=== PATIENT | male | born 1935 | race African-American/Black ===

== ENCOUNTER → 2017-06-28 | Outpatient (CLI) | payer MEDICARE, BC ==
--- NOTE | 2017-06-28 12:25 | RADIOLOGY REPORT (SQ) ---
EXAM DESCRIPTION: CHEST PA/LATERAL COMPLETED DATE/TIME: 06/28/2017 10:55 am REASON FOR STUDY: UNSPECIFIED ASTHMA, UNCOMPLICATED COMPARISON: 06/23/2012 EXAM PARAMETERS: NUMBER OF VIEWS: two views TECHNIQUE: Digital Frontal and Lateral radiographic views of the chest acquired. RADIATION DOSE: NA LIMITATIONS: none FINDINGS: LUNGS AND PLEURA: No opacities, masses or pneumothorax. No pleural effusion. MEDIASTINUM AND HILAR STRUCTURES: Prominence of the inferior right hilum. HEART AND VASCULAR STRUCTURES: Heart normal size. No evidence for failure. BONES: Scoliosis. HARDWARE: None in the chest. OTHER: No other significant finding. IMPRESSION: There is stable prominence of the inferior right hilum. No acute pulmonary disease is p resent. TECHNICAL DOCUMENTATION: JOB ID: [id number] [employer]- All Rights Reserved
== END ==
LOC: OD 10:40
PROVIDERS: ATTEND Internal Medicine
DX: J45.909 Unspecified asthma, uncomplicated (principal)
CPT/HCPCS: 71020

== ENCOUNTER → 2017-10-06 | Outpatient (CLI) | payer MEDICARE, BC ==
[2017-10-07 10:04] LABS: PROSTATE SPECIFIC ANTIGEN 5.6 ng/mL (0.0-4.0); PSA % FREE 7.5 (.); PSA FREE 0.42 ng/mL
== END ==
LOC: OD 10:35
PROVIDERS: ATTEND Urology
DX: N40.1 Benign prostatic hyperplasia with lower urinary tract symptoms (principal); R97.20 Elevated prostate specific antigen [PSA]
CPT/HCPCS: 36415; 84154

== ENCOUNTER → 2017-10-18 | Outpatient (CLI) | payer BC, MEDICARE ==
--- NOTE | 2017-10-18 15:04 | RADIOLOGY REPORT (SQ) ---
EXAM DESCRIPTION: CT LUNG CANCER SCREENING COMPLETED DATE/TIME: 10/18/2017 1:47 pm REASON FOR STUDY: Z87.891 PERSONAL HISTORY OF NICOTINE DEPENDENCE Z87.891 PERSONAL HISTORY OF NICOT INE DEPENDENCE Has the patient had a Chest CT scan within the past year? Was the patient offered tobacco cessation counseling? Was the patient engaged in shared decision making for this test? Does the patient have signs or symptoms of Lung Cancer? Is the patient a smoker? How many packs per year? How many years since quitting smoking? Patients age: COMPARISON: None. TECHNIQUE: Low Dose CT scan performed of the chest without intravenous contrast for purposes of scre ening for lung cancer. Images reviewed with lung, soft tissue and bone windows. Reconstructed coron al and sagittal MPR images reviewed. All images stored on PACS. All CT scanners at this facility use dose modulation, iterative reconstruction, and/or weight based d osing when appropriate to reduce radiation dose to as low as reasonably achievable (ALARA). [facility]: Dose Right [facility]: CareDose [facility]: Dose Right [facility]: Teradose 4D [facility]: SmartFocus RADIATION DOSE: CT Rad equipment meets quality standard of care and radiation dose reduction techniq ues were employed. CTDIvol: 2.1 mGy. DLP: 77 mGy-cm. mGy. . LIMITATIONS: No technical limitations. FINDINGS: LUNGS AND PLEURA: No masses or nodules. No pleural effusions or calcifications. No pne umothorax. Centrilobular emphysema. HILAR AND MEDIASTINAL STRUCTURES: No identified masses. No abnormal nodes. HEART AND VASCULAR STRUCTURES: No aortic aneurysm. No pericardial effusion. No cardiac devices. CORONARY ARTERY CALCIFICATIONS: Mild to moderate calcifications. UPPER ABDOMEN: No significant findings. THYROID AND OTHER SOFT TISSUES: No masses. No adenopathy. BONY STRUCTURES: No significant finding. OTHER: No other significant findings. IMPRESSION: NO SIGNIFICANT FINDING ON NON-CONTRASTED CHEST CT. OTHER FINDINGS ABOVE. LUNGRADS: LUNGRADS: 1 NEGATIVE. NO NODULES, OR DEFINITELY BENIGN NODULES MODIFIER: NONE RECOMMENDATION: Continue annual screening with LDCT in 12 months. COMMENT: CRITERIA: No lung nodules. Nodules with specific calcifications: Complete, central, popcorn, concentric rings and fat containin g nodules. TECHNICAL DOCUMENTATION: JOB ID: [id number] Quality ID # [id number]: Final reports with documentation of one or more dose reduction techniques (e.g., Au tomated exposure control, adjustment of the mA and/or kV according to patient size, use of iterative reconstruction technique) 2010 [facility] Reading location - IP/workstation name: [email or web address]
== END ==
LOC: RAD 13:47
PROVIDERS: ATTEND Physician Assistant
DX: Z12.2 Encounter for screening for malignant neoplasm of respiratory organs (principal); R06.00 Dyspnea, unspecified; Z87.891 Personal history of nicotine dependence
CPT/HCPCS: G0297

== ENCOUNTER 2018-01-10 09:50 | Day surgery (SDC) | payer BC, MEDICARE ==
[~2018-01-10 09:50] MED LIST: BESIFLOXACIN HCL 0.6% OPH SUSP 5 ML BOTTLE OD PRN; CYCLOPENTOLATE 0.2%/PHENYLEPHRINE 1% OPH SOLN 2 ML OD PRN; KETOROLAC TROMETHAMINE 0.45% 4 DROP/0.4 ML DROPERETTE OD PRN; TETRACAINE HCL 0.5% OPH SOLN 2 ML OD PRN; TROPICAMIDE 1% OPH SOLN 3 ML OD PRN
[2018-01-10] MEDS ORDERED: EPINEPHRINE INJ/PF 1 MG/1 ML AMPULE ONE (10:04)
[2018-01-10] MEDS ORDERED: CHONDR SU A NA/HYALUR INTRAOC KIT (SURGICARE) ONE (10:04)
[2018-01-10] MEDS ORDERED: LIDOCAINE 1% INJ-PF (10 MG/ML) 30 ML SDV ONE (10:04)
[2018-01-10] MEDS: BESIFLOXACIN HCL 0.6% OPH SUSP 5 ML BOTTLE OD PRN ×3 (10:59→11:56)
[2018-01-10] MEDS: CYCLOPENTOLATE 0.2%/PHENYLEPHRINE 1% OPH SOLN 2 ML OD PRN ×3 (10:59→11:19)
[2018-01-10] MEDS: TROPICAMIDE 1% OPH SOLN 3 ML OD PRN ×3 (10:59→11:19)
[2018-01-10] MEDS: TETRACAINE HCL 0.5% OPH SOLN 2 ML OD PRN ×3 (11:00→11:35)
[2018-01-10] MEDS ORDERED: MIDAZOLAM 2 MG/2 ML INJ ONE (11:13)
[2018-01-10] MEDS ORDERED: FENTANYL CITRATE INJ/PF 100 MCG/2 ML AMPUL ONE (11:14)
[2018-01-10] MEDS ORDERED: LIDOCAINE 1%/PHENYLEPHRINE 1.5% 1 ML VIAL ONE (11:45)
--- NOTE | 2018-01-10 14:45 | [facility] OPERATIVE REPORT E ---
[facility] Operative Report NAME: KRISTAN REID AGE: 82Y DATE OF SURGERY: 01/10/2018 ROOM: PREOPERATIVE DIAGNOSES: 1. CATARACT, RIGHT EYE. 2. PUPIL MIOSIS, RIGHT EYE. POSTOPERATIVE DIAGNOSES: 1. CATARACT, RIGHT EYE. 2. PUPIL MIOSIS, RIGHT EYE. OPERATION: Complex cataract extraction with use of a Malyugin ring due to poor pupillary dilation. SURGEON: RAJANI FU M.D. ANESTHESIA: Topical. COMPLICATIONS: None. ESTIMATED BLOOD LOSS: None. PROCEDURE: After obtaining appropriate consent, the patient right eye was prepped and draped in sterile fashion as well as the surgeon in a sterile manner, and the cataract surgery was started. First, the paracentesis blade was used to make a small side-port incision. Viscoelastic was used to inflate the anterior chamber. Next a 2.4 mm incision was made using a 2.4 mm keratome. At this point, the pupil was less than 4.5 mm and was very miotic. In order to complete the capsulorhexis, a Malyugin ring was inserted and found to be in excellent position to help stabilize the pupil. Following this, a continuous capsulorhexis was made using a cystitome and Utrata forceps. Following this, hydrodissection was carried out to make the lens fully loose and mobile, and it was rotated 90 degrees. Following this, a divide and conquer technique was used to phacoemulsify the lens with a CDE of approximately 12.75. The remaining cortex was removed with irrigation/aspiration. Provisc was instilled into the capsular bag to inflate the bag. A SN60WF lens of 21.5 diopters was placed. The remaining viscoelastic material was removed with irrigation/aspiration. After this the Malyugin ring was removed. Following this, the incision was found to be watertight. Besivance was instilled into the eye and a protective shield was placed over the eye. The patient returned to the postoperative recovery in stable condition. This was a complex case due to the fact that the Malyugin ring was used due to poor pupillary dilation of less than or equal to 4 mm. Prior to making the capsulorrhexis a Malyugin ring was inserted due to poor pupillary dilation of 3 mm. This was removed at the end of the case. DICTATING PHYSICIAN: RAJANI FU M.D. [id number] PHY#: [id number] ID: [id number] JOB#: [id number] ACCT: [id number] cc:RAJANI FU M.D. >
--- NOTE | 2018-01-10 14:48 | [facility] DISCHARGE SUMMARY E ---
[facility] Discharge Summary NAME: KRISTAN REID AGE: 82Y ADMITTED: 01/10/2018 DISCHARGED: 01/10/2018 DIAGNOSES: 1. Cataract, right eye. 2. Pupil miosis, right eye. SUMMARY: This is an 82-year-old male who underwent complex cataract extraction with use of a Malyugin ring due to poor pupillary dilation. Patient underwent surgery because he was having difficulty driving at night secondary to glare from headlights. DISCHARGE INSTRUCTIONS: Patient should be on a regular diet, no bending at his waist, and no heavy lifting. He should use his Besivance, Ilevro, and Durezol at 3 p.m. and 8 p.m. and sleep with a rigid shield. I will see him for a 1-day postoperative tomorrow. DICTATING PHYSICIAN: RAJANI FU M.D. [id number] PHY#: [id number] ID: [id number] JOB#: [id number] ACCT: [id number] cc:RAJANI FU M.D. >
== END 2018-01-10 12:40 | disposition home or self-care (01) ==
LOC: SC 09:50
PROVIDERS: ATTEND Internal Medicine
DX: H25.811 Combined forms of age-related cataract, right eye (principal); H57.03 Miosis; J44.9 Chronic obstructive pulmonary disease, unspecified; I10 Essential (primary) hypertension; K21.9 Gastro-esophageal reflux disease without esophagitis; E11.9 Type 2 diabetes mellitus without complications; Z79.51 Long term (current) use of inhaled steroids; Z79.899 Other long term (current) drug therapy; Z79.82 Long term (current) use of aspirin
CPT/HCPCS: 66982; 82962; V2632; J2250; J3490; A9270; J0171; J3010; J2370; 142

== ENCOUNTER 2018-02-23 09:26 | Day surgery (SDC) | payer MEDICARE ==
[~2018-02-23 09:26] MED LIST changes: -BESIFLOXACIN HCL 0.6% OPH SUSP 5 ML BOTTLE OD PRN; +CHONDR SU A NA/HYALUR INTRAOC KIT (SURGICARE) ONE; -CYCLOPENTOLATE 0.2%/PHENYLEPHRINE 1% OPH SOLN 2 ML OD PRN; +EPINEPHRINE INJ/PF 1 MG/1 ML AMPULE ONE; -KETOROLAC TROMETHAMINE 0.45% 4 DROP/0.4 ML DROPERETTE OD PRN; +KETOROLAC TROMETHAMINE 0.45% 4 DROP/0.4 ML DROPERETTE OS PRN; +LIDOCAINE 1% INJ-PF (10 MG/ML) 30 ML SDV ONE; +LIDOCAINE 1%/PHENYLEPHRINE 1.5% 1 ML VIAL ONE; -TETRACAINE HCL 0.5% OPH SOLN 2 ML OD PRN; -TROPICAMIDE 1% OPH SOLN 3 ML OD PRN
[2018-02-23] MEDS: BESIFLOXACIN HCL 0.6% OPH SUSP 5 ML BOTTLE OS PRN ×4 (09:58→10:53)
[2018-02-23] MEDS: CYCLOPENTOLATE 0.2%/PHENYLEPHRINE 1% OPH SOLN 2 ML OS PRN ×3 (09:58→10:18)
[2018-02-23] MEDS: TROPICAMIDE 1% OPH SOLN 3 ML OS PRN ×3 (09:58→10:18)
[2018-02-23] MEDS: TETRACAINE HCL 0.5% OPH SOLN 2 ML OS PRN ×3 (09:59→10:33)
[2018-02-23] MEDS ORDERED: MIDAZOLAM 2 MG/2 ML INJ ONE (10:15)
[2018-02-23] MEDS ORDERED: FENTANYL CITRATE INJ/PF 100 MCG/2 ML AMPUL ONE (10:16)
--- NOTE | 2018-02-24 13:26 | [facility] DISCHARGE SUMMARY E ---
[facility] Discharge Summary NAME: KRISTAN REID AGE: 82Y ADMITTED: 02/23/2018 DISCHARGED: 02/23/2018 HISTORY: This is an 82-year-old patient who underwent complex cataract extraction in the left eye with insertion of a Malyugin ring. DIAGNOSES: 1. Cataract, left eye. 2. Pupil myosis requiring a Malyugin ring. HOSPITAL COURSE: The patient underwent surgery because she was having trouble seeing small print. DISCHARGE INSTRUCTIONS: He should be on a regular diet. No bending at his waist, no heavy lifting. He should his Besivance, Ilevro, and Durezol at 3 p.m. and 8 p.m. and sleep with a rigid shield, and I will see him for a 1 day postoperative tomorrow. DICTATING PHYSICIAN: RAJANI FU M.D. [id number] PHY#: [id number] ID: [id number] JOB#: [id number] ACCT: [id number] cc:RAJANI FU M.D. >
--- NOTE | 2018-02-24 13:26 | [facility] OPERATIVE REPORT E ---
[facility] Operative Report NAME: KRISTAN REID AGE: 82Y DATE OF SURGERY: 03/01/2018 ROOM: PREOPERATIVE DIAGNOSES: 1. Cataract, left eye. 2. Pupil myosis, left eye. POSTOPERATIVE DIAGNOSES: 1. Cataract, left eye. 2. Pupil myosis, left eye. PROCEDURE: Complex cataract extraction with the use of a Malyugin ring due to pupillary miosis. SURGEON: RAJANI FU M.D. ANESTHESIA: TOPICAL. COMPLICATIONS: None. ESTIMATED BLOOD LOSS: None. DESCRIPTION OF PROCEDURE: After obtaining appropriate consent, the patient left eye was prepped and draped in sterile fashion as well as the surgeon in a sterile manner, and the cataract surgery was started. First, the paracentesis blade was used to make a small side-port incision. Viscoelastic was used to inflate the anterior chamber. Next a 2.4 mm incision was made using a 2.4 mm keratome. At this point, the pupil was less than 4.5 mm and was very miotic. In order to complete the capsulorhexis, a Malyugin ring was inserted and found to be in excellent position to help stabilize the pupil. Following this, a continuous capsulorhexis was made using a cystitome and Utrata forceps. Following this, hydrodissection was carried out to make the lens fully loose and mobile, and it was rotated 90 degrees. Following this, a divide and conquer technique was used to phacoemulsify the lens with a CDE of approximately 7.93. The remaining cortex was removed with irrigation/aspiration. Provisc was instilled into the capsular bag to inflate the bag. A SN60WF lens of 22.0 diopters was placed. The remaining viscoelastic material was removed with irrigation/aspiration. After this the Malyugin ring was removed. Following this, the incision was found to be watertight. Besivance was instilled into the eye and a protective shield was placed over the eye. The patient returned to the postoperative recovery in stable condition. Prior to making the capsulorrhexis, a Malyugin ring was inserted due to a very myotic pupil less than 4 mm. This was removed at the end of the case. DICTATING PHYSICIAN: RAJANI FU M.D. [id number] PHY#: [id number] ID: [id number] JOB#: [id number] ACCT: [id number] cc:RAJANI FU M.D. >
== END 2018-02-23 11:55 | disposition home or self-care (01) ==
LOC: SC 09:26
PROVIDERS: ATTEND Internal Medicine
DX: H25.812 Combined forms of age-related cataract, left eye (principal); H57.03 Miosis; Z96.1 Presence of intraocular lens; J44.9 Chronic obstructive pulmonary disease, unspecified; E11.9 Type 2 diabetes mellitus without complications; K21.9 Gastro-esophageal reflux disease without esophagitis; I10 Essential (primary) hypertension; Z79.51 Long term (current) use of inhaled steroids; I25.2 Old myocardial infarction; Z79.82 Long term (current) use of aspirin
CPT/HCPCS: 66982; 82962; V2632; J2250; J3490; A9270; J0171; J2370; 142; J3010

== ENCOUNTER → 2018-10-24 | Outpatient (CLI) | payer MEDICARE ==
--- NOTE | 2018-10-24 13:36 | RADIOLOGY REPORT (SQ) ---
EXAM DESCRIPTION: CT CHEST WITHOUT COMPLETED DATE/TIME: 10/24/2018 1:08 pm REASON FOR STUDY: J43.2 CENTRILOBULAR EMPHYSEMA J43.2 CENTRILOBULAR EMPHYSEMA COMPARISON: Screening 10/18/2017 TECHNIQUE: CT scan performed of the chest without intravenous contrast. Images reviewed with lung, soft tissue and bone windows. Reconstructed coronal and sagittal MPR images reviewed. All images st ored on PACS. All CT scanners at this facility use dose modulation, iterative reconstruction, and/or weight based d osing when appropriate to reduce radiation dose to as low as reasonably achievable (ALARA). [facility]: Dose Right [facility]: CareDose [facility]: Dose Right [facility]: Teradose 4D [facility]: Smart [employer] RADIATION DOSE: CT Rad equipment meets quality standard of care and radiation dose reduction techniq ues were employed. CTDIvol: 13.3 mGy. DLP: 459 mGy-cm. mGy. LIMITATIONS: No technical limitations. FINDINGS: LUNGS AND PLEURA: No masses, infiltrates, or pneumothorax. No pleural effusions or pleura l calcifications. HILAR AND MEDIASTINAL STRUCTURES: No identified masses or abnormal nodes. No obvious aneurysm. HEART AND VASCULAR STRUCTURES: Small pericardial effusion. No aneurysm. UPPER ABDOMEN: Diverticulosis coli. THYROID AND OTHER SOFT TISSUES: No masses. No adenopathy. BONES: No significant finding. HARDWARE: None in the chest. OTHER: No other significant findings. IMPRESSION: Small pericardial effusion. Diverticulosis coli. No acute finding in the lungs. TECHNICAL DOCUMENTATION: JOB ID: [id number] Quality ID # [id number]: Final reports with documentation of one or more dose reduction techniques (e.g., Au tomated exposure control, adjustment of the mA and/or kV according to patient size, use of iterative reconstruction technique) 2010 [employer]- All Rights Reserved Reading location - IP/workstation name: [email or web address]
== END ==
LOC: RAD 16:21
PROVIDERS: ATTEND Internal Medicine Pulmonary Disease
DX: J43.2 Centrilobular emphysema (principal); I31.3 Pericardial effusion (noninflammatory); K57.30 Diverticulosis of large intestine without perforation or abscess without bleeding
CPT/HCPCS: 71250

== ENCOUNTER → 2019-06-22 | Outpatient (CLI) | payer MEDICARE ==
--- NOTE | 2019-06-22 09:32 | RADIOLOGY REPORT (SQ) ---
EXAM DESCRIPTION: CERV SP 4 OR 5 VIEWS COMPLETED DATE/TIME: 06/22/2019 9:13 am REASON FOR STUDY: CERVICALGIA M54.2 CERVICALGIA COMPARISON: 10/18/2000 NUMBER OF VIEWS: Five views including obliques. TECHNIQUE: AP, lateral, obliques and odontoid radiographic images acquired of the cervical spine. LIMITATIONS: None. FINDINGS: MINERALIZATION: Osteopenia. ALIGNMENT: There is reversal of the normal cervical doses. VERTEBRAE: There is wedging of C6 and C7 unchanged from prior study. DISCS: Multilevel disc space narrowing with osteophytes. POSTERIOR ELEMENTS: Pedicles and facets are intact. No posterior arch defects. Facet arthropathy is present. FORAMINA: Narrowed at the levels of maximal disc and facet disease. HARDWARE: None in the spine. PARASPINAL SOFT TISSUES: Normal. OTHER: No other significant finding. IMPRESSION: Osteopenia. Severe disc degenerative disease. Wedging of C6 and C7 unchanged from prio r study. TECHNICAL DOCUMENTATION: JOB ID: [id number] [employer]- All Rights Reserved Reading location - IP/workstation name: [email or web address]
== END ==
LOC: RAD 08:47
PROVIDERS: ATTEND Internal Medicine
DX: M54.2 Cervicalgia (principal)
CPT/HCPCS: 72050

== ENCOUNTER 2019-11-02 20:37 | Emergency (ER) | payer MEDICARE ==
[2019-11-02 20:57] LABS: ABSOLUTE LYMPHOCYTES (AUTO) 0.9 10^3/uL (0.5-4.7); ABSOLUTE MONOCYTES (AUTO) 0.4 10^3/uL (0.1-1.4); ABSOLUTE NEUT (AUTO) 4.8 10^3/uL (1.7-8.2); BASOPHILS % (AUTO) 0.2 % (0-2); EOSINOPHILS % (AUTO) 0.6 % (0-6); HEMOGLOBIN 11.2 g/dL (13.5-17.0); LYMPHOCYTES % (AUTO) 14.5 % (13-45); MEAN CORPUSCULAR HEMOGLOBIN 28.7 pg (27.0-33.4); MEAN CORPUSCULAR HGB CONC 33.9 g/dL (32.0-36.0); MEAN CORPUSCULAR VOLUME 85 fl (80-97); MONOCYTES % (AUTO) 7.2 % (3-13); PLATELET COUNT 114 10^3/uL (150-450); RED CELL DISTRIBUTION WIDTH 14.8 % (11.5-14.0); SEGMENTED NEUTROPHILS % (AUTO) 77.5 % (42-78); TOTAL CELLS COUNTED % (AUTO) 100 %; WHITE BLOOD COUNT 6.2 10^3/uL (4.0-10.5)
[2019-11-02 21:15] LABS: ALBUMIN 3.1 g/dL (3.5-5.0); ALKALINE PHOSPHATASE 49 U/L (38-126); ASPARTATE AMINO TRANSFERASE 27 U/L (17-59); BILIRUBIN,DIRECT 0.1 mg/dL (0.0-0.4); BILIRUBIN,TOTAL 0.5 mg/dL (0.2-1.3); BLOOD UREA NITROGEN 16 mg/dL (7-20); CALCIUM 8.9 mg/dL (8.4-10.2); CARBON DIOXIDE 29 mmol/L (22-30); CREATINE KINASE 169 U/L (55-170); GLUCOSE 162 mg/dL (75-110); POTASSIUM 4.1 mmol/L (3.6-5.0); TOTAL PROTEIN 5.5 g/dL (6.3-8.2)
[2019-11-02 21:20] LABS: ANION GAP 5 (5-19); CHLORIDE 104 mmol/L (98-107)
[2019-11-02 21:27] LABS: CREATINE KINASE MB 1.77 ng/mL (<4.55); TROPONIN I < 0.012 ng/mL
[2019-11-02] MEDS ORDERED: NORMAL SALINE 1000 ML 1,000 ML IV ONE (22:11)
[2019-11-02] MEDS ORDERED: NORMAL SALINE 250 ML IV PRN ×2 (22:12)
--- NOTE | 2019-11-02 22:17 | ER Document Report ---
ED GI Bleed / Rectal Pain - General Chief Complaint: Rectal Bleeding Stated Complaint: RECTAL BLEEDING Time Seen by Provider: 11/02/19 21:35 Primary Care Provider: ANGIE EDUARDO MD [Primary Care Provider] - Follow up as needed Mode of Arrival: Medic Information source: Patient Notes: 84-year-old man presents to the emergency department with a history of rectal bleeding. States that he was seen by his physician earlier in the week and told that it was likely hemorrhoidal. He presents tonight with tachycardia and bright red blood per rectum. He has had a very large bloody stool in the emergency department with a secondary repeat episode. Patient became hyp otensive and lightheaded/presyncopal while in the ER. TRAVEL OUTSIDE OF THE [place] IN LAST 30 DAYS: No - Related Data Allergies/Adverse Reactions: No Known Allergies Allergy (Verified 02/23/18 10:03) Past Medical History - Social History Smoking Status: Former Smoker Chew tobacco use (# tins/day): No Frequency of alcohol use: None Drug Abuse: None Family History: Reviewed & Not Pertinent Patient has suicidal ideation: No Patient has homicidal ideation: No - Past Medical History Cardiac Medical History: Reports: Hx Heart Attack - SLIGHT-90'S, Hx Hypercholesterolemia, Hx Hypertension - MEDS Pulmonary Medical History: Reports: Hx Asthma - NO MEDS THOUGH Neurological Medical History: Denies: Hx Cerebrovascular Accident, Hx Seizures GI Medical History: Denies: Hx Hepatitis, Hx Hiatal Hernia, Hx Ulcer Infectious Medical History: Denies: Hx Hepatitis Past Surgical History: Reports: Hx Orthopedic Surgery - right foot. Denies: Hx Open Heart Surgery, Hx Pacemaker - Immunizations Hx Diphtheria, Pertussis, Tetanus Vaccination: No Review of Systems - Review of Systems Notes: Constitutional: Negative for fever. HENT: Negative for sore throat. Eyes: Negative for visual changes. Cardiovascular: + Tachycardia, chest pain. Respiratory: Negative for shortness of breath. Gastrointestinal: + Bright red blood per rectum, negative for abdominal pain, vomiting or diarrhea. Genitourinary: Negative for dysuria. Musculoskeletal: Negative for back pain. Skin: Negative for rash. Neurological: Negative for headaches, weakness or numbness. 10 point ROS negative except as marked above and in HPI. Physical Exam - Vital signs Vitals: Temp Resp BP Pulse Ox 98.6 F 29 H 125/94 H 98 11/02/19 20:39 11/02/19 20:39 11/02/19 20:39 11/02/19 20:39 - Notes Notes: PHYSICAL EXAMINATION: Physical Exam: General: Well-nourished well-developed in no acute distress HEENT: NC/AT, pupils equal round and reactive to light, MM moist,nares clear, oropharynx clear, airway patent Neck: supple, no adenopathy, no masses. Good range of motion Lungs: clear, no wheezing, no rales no rhonchi CVS: Regular rate and rhythm no murmur gallop or rub Abdomen: Soft, active, nontender, no masses, no hepatosplenomegaly Ext: No edema, clubbing or cyanosis. Neuro: Alert and responsive, moving all 4 extremities on command, cranial nerves intact, no focal findings Skin: Intact no open lesions, no rash PSYCH: Normal mood, normal affect. Course - Re-evaluation Re-evalutation: 11/02/19 22:38 Patient became hypotensive and presyncopal, emergent blood 1 unit is being infu sed, the patient is typed and crossmatched for 2 units of typed specific blood, normal saline 1 L is also ordered. A repeat CBC is being done. I have discussed with the patient the need for transfer given there is no gastroenterology coverage at [facility] until Tuesday11/06/2019. 11/02/19 23:02 The hospitalist at [facility], Dr. Barreto has accepted the patient in transfer. We will continue fluid and blood resuscitation to stabilize blood pressure. Patient remains asymptomatic alert and responsive with normal oxygen saturation on room air. 11/03/19 00:17 Patient's blood pressure has improved to 103/74 he is continued to be hemodynamically alert and responsive post transfusion 1 unit of blood and an additional liter of normal saline. The repeat hemoglobin hematocrit 9.5/27. Patient will receive additional units of packed RBCs, type-specific red blood cells. 11/03/19 00:18 The patient's is at the bedside and I have explained to her that he is being transferred to [facility], she is in agreement with that plan. - Vital Signs Vital signs: Temp Pulse Resp BP Pulse Ox 98.6 F 123 H 19 103/74 99 11/03/19 00:10 11/03/19 00:10 11/03/19 00:10 11/03/19 00:10 11/03/19 00:10 - Laboratory Result Diagrams: 11/02/19 22:49 11/02/19 20:44 Laboratory results interpreted by me: 11/02/19 11/02/19 11/02/19 20:44 20:44 20:44 RBC 3.90 L Hgb 11.2 L Hct 33.0 L RDW 14.8 H Plt Count 114 L Glucose 162 H Total Protein 5.5 L Albumin 3.1 L Crossmatch See Detail 11/02/19 22:49 RBC 3.26 L Hgb 9.5 L Hct 27.7 L RDW 15.0 H Plt Count 105 L Glucose Total Protein Albumin Crossmatch 11/03/19 00:14 I have reviewed laboratory data and used this information for the treatment decisions regarding the patient. - EKG Interpretation by Me Rate: Tachycardia - Sinus tachycardia with no acute ST-T wave abnormalities noted., Rate 124 Critical Care Note - Critical Care Note Total time excluding time spent on procedures (mins): 60 - Critical care time spent obtaining history from patient or surrogate, discussions with consultants, development of treatment plan with patient or surrogate, evaluation of patient's response to treatment, examination of patient, ordering and performing treatments and interventions, ordering and review of laboratory studies, re- evaluation of patient's condition, ordering and review of radiographic studies and review of old charts Discharge - Discharge Clinical Impression: Hemorrhagic shock, Lower GI bleed Condition: Serious Disposition: [facility] Referrals: ANGIE EDUARDO MD [Primary Care Provider] - Follow up as needed
[2019-11-02 22:30] LABS: INTERNATIONAL RATION (INR) 1.15; PROTHROMBIN TIME 14.8 SEC (11.4-15.4)
[2019-11-02 22:31] LABS: PARTIAL THROMBOPLASTIN TIME 31.5 SEC (23.5-35.8)
[2019-11-02 23:02] LABS: ABSOLUTE LYMPHOCYTES (AUTO) 1.2 10^3/uL (0.5-4.7); ABSOLUTE MONOCYTES (AUTO) 0.5 10^3/uL (0.1-1.4); HEMATOCRIT 27.7 % (37.9-51.0); MEAN CORPUSCULAR VOLUME 85 fl (80-97); PLATELET COUNT 105 10^3/uL (150-450); RED BLOOD COUNT 3.26 10^6/uL (4.35-5.55); TOTAL CELLS COUNTED % (AUTO) 100 %
[2019-11-02 23:07] LABS: ABSOLUTE NEUT (AUTO) 4.8 10^3/uL (1.7-8.2); BASOPHILS % (AUTO) 0.2 % (0-2); EOSINOPHILS % (AUTO) 0.3 % (0-6); HEMOGLOBIN 9.5 g/dL (13.5-17.0); LYMPHOCYTES % (AUTO) 18.5 % (13-45); MEAN CORPUSCULAR HGB CONC 34.2 g/dL (32.0-36.0); MONOCYTES % (AUTO) 7.4 % (3-13); SEGMENTED NEUTROPHILS % (AUTO) 73.6 % (42-78); WHITE BLOOD COUNT 6.5 10^3/uL (4.0-10.5)
[2019-11-03 00:35] VITALS: BP 90/62
--- NOTE | 2019-11-03 13:55 | EKG REPORT ---
SEVERITY:- ABNORMAL ECG - SINUS TACHYCARDIA LEFT ANTERIOR FASCICULAR BLOCK : Confirmed by: Carla Brooke MD 03-Nov-2019 13:54:16
== END 2019-11-03 00:44 | disposition short-term general hospital (02) ==
LOC: ER 20:37
DX: K92.2 Gastrointestinal hemorrhage, unspecified (principal); R57.8 Other shock; R00.0 Tachycardia, unspecified; I25.2 Old myocardial infarction
CPT/HCPCS: 99291; 96360; 86900; 86901; 36415; 82553; 36430; 86850; 82550; 85025; 85610; 85730; 80053; 84484; 86920; 93005; 93010; P9016; J7030

== ENCOUNTER 2019-12-07 17:20 | Emergency (ER) | payer MEDICARE ==
[2019-12-07 17:54] LABS: ABSOLUTE EOSINOPHILS # (AUTO) 0.1 10^3/uL (0.0-0.6); ABSOLUTE LYMPHOCYTES (AUTO) 1.9 10^3/uL (0.5-4.7); ABSOLUTE MONOCYTES (AUTO) 0.8 10^3/uL (0.1-1.4); ABSOLUTE NEUT (AUTO) 4.2 10^3/uL (1.7-8.2); BASOPHILS % (AUTO) 0.5 % (0-2); EOSINOPHILS % (AUTO) 1.3 % (0-6); HEMATOCRIT 26.7 % (37.9-51.0); HEMOGLOBIN 8.9 g/dL (13.5-17.0); LYMPHOCYTES % (AUTO) 26.7 % (13-45); MEAN CORPUSCULAR HEMOGLOBIN 28.5 pg (27.0-33.4); MEAN CORPUSCULAR HGB CONC 33.5 g/dL (32.0-36.0); MEAN CORPUSCULAR VOLUME 85 fl (80-97); MONOCYTES % (AUTO) 11.6 % (3-13); PLATELET COUNT 149 10^3/uL (150-450); RED BLOOD COUNT 3.14 10^6/uL (4.35-5.55); RED CELL DISTRIBUTION WIDTH 17.2 % (11.5-14.0); SEGMENTED NEUTROPHILS % (AUTO) 59.9 % (42-78); TOTAL CELLS COUNTED % (AUTO) 100 %
[2019-12-07 18:07] LABS: VENOUS BLOOD PCO2 36.4 mmHg (35-63); VENOUS BLOOD PH 7.45 (7.30-7.42)
--- NOTE | 2019-12-07 18:10 | RADIOLOGY REPORT (SQ) ---
EXAM DESCRIPTION: CHEST SINGLE VIEW IMAGES COMPLETED DATE/TIME: 12/07/2019 6:01 pm REASON FOR STUDY: SHORTNESS OF BREATH COMPARISON: 07/03/2012. NUMBER OF VIEWS: One view. TECHNIQUE: Single frontal radiographic view of the chest acquired. LIMITATIONS: None. FINDINGS: LUNGS AND PLEURA: No opacities, masses or pneumothorax. No pleural effusion. MEDIASTINUM AND HILAR STRUCTURES: Stable contours. Ectatic uncoiled aorta. HEART AND VASCULAR STRUCTURES: Heart normal in size. Normal vasculature. BONES: No acute findings. HARDWARE: Left pacer. OTHER: No other significant finding. IMPRESSION: NO SIGNIFICANT RADIOGRAPHIC FINDING IN THE CHEST. TECHNICAL DOCUMENTATION: JOB ID: [id number] 2010 [employer]- All Rights Reserved Reading location - IP/workstation name: [email or web address]
[2019-12-07 18:21] LABS: ALBUMIN 2.5 g/dL (3.5-5.0); ALKALINE PHOSPHATASE 84 U/L (38-126); ASPARTATE AMINO TRANSFERASE 52 U/L (17-59); BILIRUBIN,TOTAL 0.4 mg/dL (0.2-1.3); BLOOD UREA NITROGEN 5 mg/dL (7-20); CARBON DIOXIDE 34 mmol/L (22-30); CHLORIDE 95 mmol/L (98-107); GLUCOSE 92 mg/dL (75-110); POTASSIUM 3.8 mmol/L (3.6-5.0); TOTAL PROTEIN 5.6 g/dL (6.3-8.2)
[2019-12-07] MEDS ORDERED: ACETAMINOPHEN 325 MG SUPP.RECT PR ONE (18:21)
[2019-12-07 18:27] LABS: ANION GAP 3 (5-19)
[2019-12-07] MEDS ORDERED: NORMAL SALINE 1000 ML 1,000 ML IV ONE (18:56)
[2019-12-07] MEDS ORDERED: CEFEPIME 2 GM/D5W RTU 2 GM/50 ML RTUPB IV ONE (18:57)
[2019-12-07 19:56] LABS: A TYPE INFLUENZA AG NEGATIVE (NEGATIVE); B INFLUENZA AG NEGATIVE (NEGATIVE)
[2019-12-07 20:51] LABS: NT PRO BNP 406 pg/mL (<450)
[2019-12-07 20:55] LABS: TROPONIN I < 0.012 ng/mL
[2019-12-07 22:23] LABS: ALBUMIN 2.1 g/dL (3.5-5.0); ALKALINE PHOSPHATASE 69 U/L (38-126); ASPARTATE AMINO TRANSFERASE 44 U/L (17-59); BILIRUBIN,TOTAL 0.3 mg/dL (0.2-1.3); TOTAL PROTEIN 4.9 g/dL (6.3-8.2)
[2019-12-07 22:26] LABS: APPEARANCE,URINE CLEAR; BILIRUBIN,URINE NEGATIVE (NEGATIVE); COLOR,URINE YELLOW; GLUCOSE, URINE NEGATIVE (NEGATIVE); KETONES,URINE NEGATIVE (NEGATIVE); LEUKOCYTE ESTERASE,URINE NEGATIVE (NEGATIVE); NITRITE,URINE NEGATIVE (NEGATIVE); PROTEIN,URINE NEGATIVE (NEGATIVE); URINE SPECIFIC GRAVITY 1.011
--- NOTE | 2019-12-07 22:51 | RADIOLOGY REPORT (SQ) ---
EXAM DESCRIPTION: CTA chest with contrast CLINICAL HISTORY: 84 years Male, SOB/Sinus tachycardia/post op COMPARISON: CT chest 10/24/2018 TECHNIQUE: Axial images of the chest were performed utilizing intravenous contrast, with sagittal and coronal MIP images and sagittal and coronal reformatted images. This exam was performed according to our departmental dose-optimization program which includes use of Automated Exposure Control, adjustment of the mA and/or kV according to patient size and/or use of iterative reconstruction technique. FINDINGS: Evaluation of the pulmonary arteries is limited, due to suboptimal arterial opacification. There are areas of low density within lower lobe pulmonary artery branches bilaterally that may be artifactual, however, I cannot entirely exclude pulmonary emboli. There are no central pulmonary emboli. There are small bilateral pleural effusions. There is a small pericardial effusion. This finding was also seen on the prior CT scan. There is a 1.6 cm nodule in the right breast. This nodule is either unchanged or slightly larger than it was on the prior CT scan. No evidence of mediastinal or hilar adenopathy. IMPRESSION: Suboptimal evaluation of the pulmonary arteries. Lower lobe pulmonary emboli cannot entirely be excluded. Small pleural effusions. Small pericardial effusion. Nodule in the right breast as described. Please correlate clinically.
--- NOTE | 2019-12-07 23:41 | RADIOLOGY REPORT (SQ) ---
EXAM DESCRIPTION: CT abdomen pelvis with contrast CLINICAL HISTORY: 84 years Male, post op colon resection COMPARISON: None. TECHNIQUE: Axial images of the abdomen and pelvis were performed utilizing intravenous contrast, with sagittal and coronal reformatted images. This exam was performed according to our departmental dose-optimization program which includes use of Automated Exposure Control, adjustment of the mA and/or kV according to patient size and/or use of iterative reconstruction technique. FINDINGS: It must be noted, that this report was delayed, because the order for this study has just been provided to me. There are several loops of dilated proximal small bowel, with normal caliber small bowel distally. The oral contrast material has progressed into the distal small bowel. Findings are compatible with partial small bowel obstruction. There is diverticulosis without diverticulitis. There are atherosclerotic changes involving the abdominal aorta, but there is no aneurysm. There is no significant radiographic abnormality of the liver, spleen, pancreas, adrenal glands or kidneys. There are small bilateral renal cysts. No mass or adenopathy. No free air or free fluid. There are small bilateral pleural effusions. IMPRESSION: Partial proximal small bowel obstruction. Other findings as described.
--- NOTE | 2019-12-07 23:42 | RADIOLOGY REPORT (SQ) ---
INDICATION: bilateral edema/sobr/elevated d dimer/post op. PROCEDURE: Real-time grayscale, color, and pulse Doppler ultrasound imaging of the bilateral lower extremity deep venous system was performed. 76 images. COMPARISON: None FINDINGS: The common femoral, superficial femoral, and popliteal veins demonstrate normal compressibility, phasic flow, augmentation and espinal scale evaluation. There is no evidence of intraluminal thrombus . The visualized deep calf veins appear patent. IMPRESSION: No evidence for acute deep venous thrombus from the common femoral to the popliteal veins.
--- NOTE | 2019-12-08 03:01 | RADIOLOGY REPORT (SQ) ---
EXAM DESCRIPTION: XR CHEST 1 VIEW COMPLETED DATE/TME: 12/08/2019 01:25 CLINICAL HISTORY: 84 years Male, ng tube COMPARISON: One day prior, CT. NUMBER OF VIEWS/TECHNIQUE: 1/AP FINDINGS: Adequate appearing enteric tube partially obscured at the level of the upper mid abdomen. Limitation: Lung apices not included on image.Left cardiac stimulator with leads. Atherosclerotic vascular disease. IMPRESSION: Adequate appearing enteric tube partially obscured.
--- NOTE | 2019-12-08 03:15 | ER Document Report ---
Entered by ROSSANA STEVENS SCRIBE 12/07/19 [id number] Acting as scribe for:SYLVIE RIVERA MD ED General - General Chief Complaint: Fever Stated Complaint: SHORTNESS OF BREATH Primary Care Provider: ANGIE EDUARDO MD [Primary Care Provider] - Follow up as needed Information source: Patient Notes: This 84-year-old male with COPD, hypertension and diabetes presents to the emergency department with a fever (102) that began at home today. Patient explained that he was short of breath today with his oxygen saturation at 90% at home. Patient explains that his last visit to the emergency department was for rectal bleeding and he was transferred to [facility]. Patient states that he was discharged and later started having rectal bleeding once again. Patient returned to the hospital and said that he underwent abdominal surgery but could not say what the name of the surgery was or the results. Patient said that he has been at home for a few days since discharge. Patient denies abdominal pain. TRAVEL OUTSIDE OF THE [place] IN LAST 30 DAYS: No - Related Data Allergies/Adverse Reactions: No Known Allergies Allergy (Verified 02/23/18 10:03) Past Medical History - General Information source: Patient - Social History Smoking Status: Never Smoker Cigarette use (# per day): No Chew tobacco use (# tins/day): No Frequency of alcohol use: None Drug Abuse: None Family History: Reviewed & Not Pertinent Patient has suicidal ideation: No Patient has homicidal ideation: No - Past Medical History Cardiac Medical History: Reports: Hx Heart Attack - SLIGHT-90'S, Hx Hypercholesterolemia, Hx Hypertension - MEDS Pulmonary Medical History: Reports: Hx Asthma - NO MEDS THOUGH, Hx COPD Past Surgical History: Reports: Hx Orthopedic Surgery - right foot - Immunizations Hx Diphtheria, Pertussis, Tetanus Vaccination: No Review of Systems - Review of Systems Constitutional: See HPI, Fever EENT: No symptoms reported Cardiovascular: No symptoms reported Respiratory: See HPI, Short of breath Gastrointestinal: See HPI. denies: Abdominal pain Genitourinary: No symptoms reported Male Genitourinary: No symptoms reported Musculoskeletal: No symptoms reported Skin: No symptoms reported Hematologic/Lymphatic: No symptoms reported Neurological/Psychological: No symptoms reported -: Yes All other systems reviewed and negative Physical Exam - Vital signs Vitals: Temp 102.0 F H 12/07/19 17:21 - Notes Notes: Physical Exam: General: Alert, appears well. HEENT: Normocephalic. Atraumatic. PERRL. Extraocular movements intact. Oropharynx clear. Neck: Supple. Non-tender. Respiratory: No respiratory distress. Clear and equal breath sounds bilaterally. Cardiovascular: Regular rate and rhythm. Abdominal: Non-tender. Minimally distended. Normal Bowel Sounds. Abdomen is warm and has a midline surgical scar where the sutures are like binders in a vested way that is below the sternum which extends to the suprapubic region. Scar is warm and red with no drainage. Back: No gross abnormalities. Extremities: Moves all four extremities. Upper extremities: Normal inspection. Normal ROM. Lower extremities: Normal inspection. No edema. Normal ROM. Neurological: Normal cognition. AAOx4. Normal speech. Psychological: Normal affect. Normal Mood. Skin: Warm. Dry. Normal color. Course - Re-evaluation Re-evalutation: 12/08/19 01:49 Patient resting comfortably NG tube in place pending chest x-ray to confirm placement of NG tube and suction and will begin. A repeat EKG and troponin has been ordered to reassess patient's cardiac care condition is sinus tachycardia h as improved to a normal sinus rhythm at this time. Initial troponin negative. 12/08/19 02:53 NGT verified on chest x-ray therefore suction has begun at this time. Thus far there is not an increased amount of gastric fluid that is been suction. Repeat troponin has come back normal flat normal number at this time. Call put into [facility] to speak to Dr. Luong who is the surgeon who recently performed a hemicolectomy on patient at [facility]. Patient was discharged from their facility on December 02. 12/08/19 03:[address] Moses Mcgovern surgeon at [facility] who is quite familiar with Mr. Kale Craig. Patient has been accepted in transfer to a surgical bed as well as understanding COVID-19 testing has been performed here with results pending at this time. - Vital Signs Vital signs: Temp Pulse Resp BP Pulse Ox 98.6 F 24 H 116/77 100 12/08/19 01:01 12/08/19 03:01 12/08/19 03:01 12/08/19 03:01 - Laboratory Result Diagrams: 12/07/19 17:30 12/07/19 17:30 Laboratory results interpreted by me: 12/07/19 12/07/19 12/07/19 17:30 17:30 17:30 RBC 3.14 L Hgb 8.9 L Hct 26.7 L RDW 17.2 H Plt Count 149 L D-Dimer 10.53 H VBG pH Sodium 132.2 L Chloride 95 L Carbon Dioxide 34 H Anion Gap 3 L BUN 5 L Lactic Acid Calcium 8.0 L Total Protein 5.6 L Albumin 2.5 L Lipase Urine Urobilinogen 12/07/19 12/07/19 12/07/19 17:30 17:30 17:50 RBC Hgb Hct RDW Plt Count D-Dimer VBG pH 7.45 H Sodium Chloride Carbon Dioxide Anion Gap BUN Lactic Acid Calcium Total Protein 4.9 L Albumin 2.1 L Lipase 653.5 H Urine Urobilinogen 12/07/19 12/08/19 21:52 00:30 RBC Hgb Hct RDW Plt Count D-Dimer VBG pH Sodium Chloride Carbon Dioxide Anion Gap BUN Lactic Acid 0.6 L Calcium Total Protein Albumin Lipase Urine Urobilinogen 2.0 H 12/08/19 01:53 Laboratory survey discloses hemoglobin of 8 normal white blood cell count lipase of 600+ and a normal troponin at this time. - Diagnostic Test Radiology reviewed: Image reviewed, Reports reviewed Radiology results interpreted by me: 12/08/19 01:48 Venous Doppler studies of bilateral lower extremities shows no evidence of deep vein thrombosis. Chest x-ray plain film disclosed no acute process. CT scan of abdomen and pelvis with oral and IV contrast disclosed a partial small bowel obstruction with dilated loops of small bowel. Distal small bowel has normal caliber. 12/08/19 01:51 CT angiogram chest disclosed normal central pulmonary vessels. The large vessels could not be determined after he excluded pulmonary emboli because of la ck of opacification during the technical study of the the CT scan angiogram. - EKG Interpretation by Me Additional EKG results interpreted by me: 12/08/19 01:51 Twelve-lead EKG done at 1730 shows sinus tach at 113 left anterior fascicular block. 12/08/19 02:28 Repeat EKG done on 12/08/2019 at 205 shows sinus rhythm rate of 95 multiple atrial premature complexes left anterior fascicular block. No acute ST changes otherwise. Discharge - Discharge Clinical Impression: Partial small bowel obstruction, Postoperative complication, Fever, Low O2 saturation, Elevated d-dimer, Elevated lipase Condition: Fair Disposition: [facility] Referrals: ANGIE EDUARDO MD [Primary Care Provider] - Follow up as needed I personally performed the services described in the documentation, reviewed and edited the documentation which was dictated to the scribe in my presence, and it accurately records my words and actions.
[2019-12-08] MEDS ORDERED: NORMAL SALINE 1000 ML 1,000 ML IV ONE (07:16)
[2019-12-08 08:35] VITALS: BP 126/74
--- NOTE | 2019-12-09 10:30 | EKG REPORT ---
SEVERITY:- ABNORMAL ECG - SINUS TACHYCARDIA WITH APCs LEFT ANTERIOR FASCICULAR BLOCK : Confirmed by: Pablo Coffey 09-Dec-2019 10:29:52
--- NOTE | 2019-12-09 23:21 | EKG REPORT ---
SEVERITY:- ABNORMAL ECG - SINUS RHYTHM MULTIPLE ATRIAL PREMATURE COMPLEXES LEFT ANTERIOR FASCICULAR BLOCK : Confirmed by: Pablo Coffey 09-Dec-2019 23:21:01
== END 2019-12-08 08:36 | disposition short-term general hospital (02) ==
LOC: ER 17:20
DX: Z20.828 Contact with and (suspected) exposure to other viral communicable diseases (principal); K56.600 Partial intestinal obstruction, unspecified as to cause; T81.89XA Other complications of procedures, not elsewhere classified, initial encounter; R50.9 Fever, unspecified; R79.89 Other specified abnormal findings of blood chemistry; Y83.8 Other surgical procedures as the cause of abnormal reaction of the patient, or of later complication, without mention of misadventure at the time of the procedure; E11.9 Type 2 diabetes mellitus without complications; J44.9 Chronic obstructive pulmonary disease, unspecified; I10 Essential (primary) hypertension; E78.00 Pure hypercholesterolemia, unspecified; I25.2 Old myocardial infarction
CPT/HCPCS: 93005 ×2; 99285; 96361; 96365; 36415; 87040; 87070 ×2; 87086; 87880; 83605; 83690; 85025; 87635; 87088; 80053; 81001; 84484; 87186; 85379; 82803; 87804; 83880; 93970; 71045 ×2; 71275; 74177; 93010 ×2; A9270; J7030 ×2; J0692; J3490

== ENCOUNTER → 2020-08-01 | Outpatient (CLI) | payer MEDICARE, BC ==
--- NOTE | 2020-08-01 12:07 | WOMENS IMAGING REPORT ---
EXAM DESCRIPTION: BILAT DIAGNOSTIC MAMMO W/CAD; U/S BREAST UNILAT LIMITED IMAGES COMPLETED DATE/TIME: 08/01/2020 9:46 am; 08/01/2020 10:12 am REASON FOR STUDY: N64.4 MASTODYNIA; RT BREAST PAIN N63.11 UNSPECIFIED LUMP IN THE RIGHT BREAST, UPP ER OUTER HALI N64.4 MASTODYNIA COMPARISON: None. EXAM PARAMETERS: Standard craniocaudal and mediolateral oblique views of each breast recorded using digital acquisition. Right true lateral view. Targeted breast ultrasound on the right with comparison to similar left matt ges. Read with the assistance of CAD: .[facility] - [employer] Compounder Helper Version 9.2 LIMITATIONS: None. FINDINGS: RIGHT BREAST MASSES: Subareolar mass. Spiculated margins. See ultrasound. CALCIFICATIONS: No new or suspicious calcifications. ARCHITECTURAL DISTORTION: None. ASYMMETRY: None noted. OTHER: No other significant findings. LEFT BREAST MASSES: No suspicious masses. CALCIFICATIONS: No new or suspicious calcifications. ARCHITECTURAL DISTORTION: None. ASYMMETRY: None noted. OTHER: No other significant finding. Ultrasound right breast: Hypoechoic irregular solid mass with internal blood flow at 12 o'clock suba reolar. Spiculated margins. The lesion measures up to 2.7 cm maximally and is associated with nippl e retraction. Imaging of the axilla shows slightly prominent nodes measuring just over 1 cm in short axis with cortical thickness of close to 6 mm. Preserved echogenic fatty hilum, nodes look architec turally otherwise normal. IMPRESSION: 1. Solid subareolar right breast mass. While gynecomastia is typically in the differential, the appe arance is concerning for neoplasm. BREAST DENSITY: b. There are scattered areas of fibroglandular density. BIRAD: ASSESSMENT: 4 Suspicious. Biopsy should be performed in the absence of clinical contra-indic ation. RECOMMENDATION: RECOMMENDED FOLLOW UP: Birads 4: Biopsy should be performed in the absence of clinic al contraindication. SPECIFIC INTERVENTION/IMAGING/CONSULTATION RECOMMENDED:The suspicious finding(s) amenable to US guide d core/vacuum assisted biopsy. COMMUNICATION:The patient was instructed to followup with referring clinician for results and further management as I did not have the opportunity to fully review the images and discuss findings with viky stanford at the time of his visit. COMMENT: The patient has been notified of the results by letter per MQSA requirements. Additional no tification policies are in place for contacting patient with suspicious or incomplete findings. Quality ID #225: The [employer] recommends an annual screening mammogram for women aged 40 years or over. This facility utilizes a reminder system to ensure that all patients receive reminder letters, and/or direct phone calls for appointments. This includes reminders for routine scr eening mammograms, diagnostic mammograms, or other Breast Imaging Interventions when appropriate. Th is patient will be placed in the appropriate reminder system. TECHNICAL DOCUMENTATION: FINDING NUMBER: (1) ASSESSMENT: (1) JOB ID: [id number] 2010 [employer]- All Rights Reserved Reading location - IP/workstation name: [email or web address]
--- NOTE | 2020-08-01 12:07 | WOMENS IMAGING REPORT ---
EXAM DESCRIPTION: BILAT DIAGNOSTIC MAMMO W/CAD; U/S BREAST UNILAT LIMITED IMAGES COMPLETED DATE/TIME: 08/01/2020 9:46 am; 08/01/2020 10:12 am REASON FOR STUDY: N64.4 MASTODYNIA; RT BREAST PAIN N63.11 UNSPECIFIED LUMP IN THE RIGHT BREAST, UPP ER OUTER HALI N64.4 MASTODYNIA COMPARISON: None. EXAM PARAMETERS: Standard craniocaudal and mediolateral oblique views of each breast recorded using digital acquisition. Right true lateral view. Targeted breast ultrasound on the right with comparison to similar left matt ges. Read with the assistance of CAD: .[facility] - [employer] Hacksaw Inspector Version 9.2 LIMITATIONS: None. FINDINGS: RIGHT BREAST MASSES: Subareolar mass. Spiculated margins. See ultrasound. CALCIFICATIONS: No new or suspicious calcifications. ARCHITECTURAL DISTORTION: None. ASYMMETRY: None noted. OTHER: No other significant findings. LEFT BREAST MASSES: No suspicious masses. CALCIFICATIONS: No new or suspicious calcifications. ARCHITECTURAL DISTORTION: None. ASYMMETRY: None noted. OTHER: No other significant finding. Ultrasound right breast: Hypoechoic irregular solid mass with internal blood flow at 12 o'clock suba reolar. Spiculated margins. The lesion measures up to 2.7 cm maximally and is associated with nippl e retraction. Imaging of the axilla shows slightly prominent nodes measuring just over 1 cm in short axis with cortical thickness of close to 6 mm. Preserved echogenic fatty hilum, nodes look architec turally otherwise normal. IMPRESSION: 1. Solid subareolar right breast mass. While gynecomastia is typically in the differential, the appe arance is concerning for neoplasm. BREAST DENSITY: b. There are scattered areas of fibroglandular density. BIRAD: ASSESSMENT: 4 Suspicious. Biopsy should be performed in the absence of clinical contra-indic ation. RECOMMENDATION: RECOMMENDED FOLLOW UP: Birads 4: Biopsy should be performed in the absence of clinic al contraindication. SPECIFIC INTERVENTION/IMAGING/CONSULTATION RECOMMENDED:The suspicious finding(s) amenable to US guide d core/vacuum assisted biopsy. COMMUNICATION:The patient was instructed to followup with referring clinician for results and further management as I did not have the opportunity to fully review the images and discuss findings with viky stanford at the time of his visit. COMMENT: The patient has been notified of the results by letter per MQSA requirements. Additional no tification policies are in place for contacting patient with suspicious or incomplete findings. Quality ID #225: The [employer] recommends an annual screening mammogram for women aged 40 years or over. This facility utilizes a reminder system to ensure that all patients receive reminder letters, and/or direct phone calls for appointments. This includes reminders for routine scr eening mammograms, diagnostic mammograms, or other Breast Imaging Interventions when appropriate. Th is patient will be placed in the appropriate reminder system. TECHNICAL DOCUMENTATION: FINDING NUMBER: (1) ASSESSMENT: (1) JOB ID: [id number] 2010 [employer]- All Rights Reserved Reading location - IP/workstation name: [email or web address]
== END ==
LOC: WI 09:32
PROVIDERS: ATTEND Internal Medicine
DX: N63.41 Unspecified lump in right breast, subareolar (principal); N64.4 Mastodynia
CPT/HCPCS: 76642; 77066

== ENCOUNTER → 2020-09-11 | Outpatient (CLI) | payer MEDICARE ==
--- NOTE | 2020-09-11 10:05 | RADIOLOGY REPORT (SQ) ---
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 0 ml; Total Saline Delivered: 40.0 ml RENAL FUNCTION: Creatinine 1.0 TECHNIQUE: CT scan of the chest performed using helical scanning technique with dynamic intravenous contrast injection. Images reviewed with lung, soft tissue and bone windows. Reconstructed coronal a nd sagittal MPR images reviewed. All images stored on PACS. CT scan of the abdomen and pelvis performed with intravenous and with oral contrastusing helical scan kendell technique with dynamic intravenous contrast injection. Images reviewed with lung, soft tissue a nd bone windows. Reconstructed coronal and sagittal MPR images reviewed. Delayed images for evaluat ion of the urinary system also acquired and evaluated. All images stored on PACS. All CT scanners at this facility use dose modulation, iterative reconstruction, and/or weight based d osing when appropriate to reduce radiation dose to as low as reasonably achievable (ALARA). [facility]: Dose Right [facility]: CareDose [facility]: Dose Right [facility]: Teradose 4D [facility]: [employer] Technologies RADIATION DOSE: CT Rad equipment meets quality standard of care and radiation dose reduction techniq ues were employed. CTDIvol: 14.1 - 20.4 mGy. DLP: 2036 mGy-cm. . LIMITATIONS: None. FINDINGS: CHEST: LUNGS AND PLEURA: There is a 3 x 4 x 4 mm solid nodule within the right upper lobe (axial image 32, c oronal reformat 62). This is retrospectively present on 10/18/2017 imaging and is unchanged in the paris dy interval. No new or suspicious nodule or mass. No focal consolidation. No pleural effusion. HILAR AND MEDIASTINAL STRUCTURES: No identified masses or abnormal nodes. HEART AND VASCULAR STRUCTURES: No aneurysm or dissection. No central pulmonary emboli. No pericardi al effusion. HARDWARE: Transvenous cardiac pacer, stable. THYROID AND OTHER SOFT TISSUES: Roughly 2 cm rounded spiculated right breast mass with biopsy marker. Right axillary lymph node with biopsy marker measures less than 1 cm in the short axis. No additio nal or acute findings. BONES: Levoconvex lateral curvature of the thoracic spine with associated asymmetric degenerative tracee nges. No suspicious lytic or blastic osseous lesions. OTHER: No other significant finding. ABDOMEN AND PELVIS: LIVER: Normal size. No masses. No intrahepatic biliary dilatation. Incidental note is made of few scattered subcentimeter hypoattenuating foci likely representing tiny hepatic cysts. SPLEEN: Normal size. No focal lesions. PANCREAS: No masses. No significant calcifications. No adjacent inflammation or peripancreatic fluid collections. Pancreatic duct not dilated. GALLBLADDER: No identified stones by CT criteria. No inflammatory changes to suggest cholecystitis. ADRENAL GLANDS: No significant masses or asymmetry. RIGHT KIDNEY AND URETER: No solid masses. Incidental note is made of a 3.4 cm exophytic simple cyst as well as a 1.0 cm parenchymal simple cyst. No significant calcification. No hydronephrosis or hydr oureter. LEFT KIDNEY AND URETER: No solid masses. Few scattered tiny hypoattenuating foci are too small to de finitively characterize, but likely represent additional tiny renal cysts. No significant calcificat ion. No hydronephrosis or hydroureter. AORTA AND VESSELS: No aneurysm. No dissection. Renal arteries, SMA, celiac without stenosis. RETROPERITONEUM: No retroperitoneal adenopathy, hemorrhage or masses. BOWEL AND PERITONEAL CAVITY: Status post right hemicolectomy. Scattered colonic diverticula without focal inflammatory changes. No mass. No obstruction. APPENDIX: Surgically absent. ABDOMINAL WALL: Rectus diastases. No herniation. PELVIS: No mass or free fluid. Normal bladder. BONES: S-shaped scoliotic curvature of the lumbar spine with asymmetric degenerative changes. Modera te degenerative changes of the bilateral femoroacetabular joints. No suspicious lytic or blastic oss eous lesions. OTHER: No other significant finding. IMPRESSION: 1. 2.5 cm spiculated right breast mass with mildly prominent right axillary lymph node ; each of these findings demonstrates biopsy markers. 2. No evidence of metastatic disease to the chest, abdomen, or pelvis. 3. Chronic and incidental findings as detailed above. TECHNICAL DOCUMENTATION: JOB ID: [id number] Quality ID # [id number]: Final reports with documentation of one or more dose reduction techniques (e.g., Au tomated exposure control, adjustment of the mA and/or kV according to patient size, use of iterative reconstruction technique) 2010 [employer]- All Rights Reserved Reading location - IP/workstation name: [email or web address]
--- NOTE | 2020-09-11 13:06 | RADIOLOGY REPORT (SQ) ---
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 The route of agent administration: Intravenous. ADDITIONAL DRUGS AND DOSES: None. TECHNIQUE: Routine delayed images at 3 hours post radionuclide injection acquired of the bony skelet on including anterior and posterior whole-body projections and additional focused images as needed. LIMITATIONS: None. FINDINGS: BONES: There are areas of degenerative uptake in the knees and shoulders. There are 3 les ions in the lower thoracic and the lumbar spine concerning for metastases. There was focal uptake in the right 8th rib laterally. KIDNEYS: Symmetric excretion without obstruction. OTHER: No other significant finding. IMPRESSION: Cannot exclude metastatic disease to bone in the lower thoracic and lumbar spine and in the right 8th rib. Please note that there is scoliosis in the thoracic and lumbar spine and extensiv e spondylosis and other degenerative changes in the lumbar spine. It is possible that the uptake see n in the spine is degenerative. COMMENT: Quality measure 147: Current bone scan is compared with any available plain radiographs, p rior bone scans, and CT/MRI. TECHNICAL DOCUMENTATION: JOB ID: [id number] 2010 [employer]- All Rights Reserved Reading location - IP/workstation name: [email or web address]
== END ==
LOC: RAD 08:48
PROVIDERS: ATTEND Internal Medicine Hematology & Oncology
DX: C50.821 Malignant neoplasm of overlapping sites of right male breast (principal)
CPT/HCPCS: 78306; 71260; 74177; A9503; Q9969; 82565